=== PATIENT | male | born 1950 | race Caucasian/White ===

== ENCOUNTER → 2016-11-16 | Day surgery (SDC) | payer MEDICARE ==
[~2016-11-16] MED LIST: ATROPINE SULFATE 1% OPHT SOLN 2 ML BTL ONE; DEXAMETHASONE SOD PHOS 4 MG/ML VIAL ONE; EPINEPHrine HCL (1:1000) 1 MG/ML VIAL ONE; FLURBIPROFEN 0.03% OPHT SOLN 2.5 ML BTL ONE; HYALURONIDASE/LIDOCAINE/BUPIVACAINE 11 ML SYR TL ONE; LACTATED RINGER'S 1000 ML INJ 1,000 ML ONE; NEOMYCIN/POLYMYXIN/DEXAMETHASONE OPTH OINT 3.5 GM TUBE ONE; PHENYLEPHRINE HCL 2.5 % OPTH SOLN 15 ML BTL ONE; PROPOFOL 200 MG/20 ML AMP IV ONE; SODIUM CHLORIDE 0.9% INJ 10 ML ONE; TETRACAINE 0.5% OPTH SOLN 15 ML BTL ONE; TRIAMCINOLONE ACETONIDE 40 MG/ML VIAL ONE; TROPICAMIDE 1% OPHT SOLN 15 ML BTL ONE; ceFAZolin INJ 1,000 MG VIAL ONE
--- NOTE | 2016-11-29 19:46 | MP ---
cc: CHRIS CRAIN MD DATE OF SURGERY: 11/16/2016. PREOPERATIVE DIAGNOSIS: Epiretinal membrane, left eye. POSTOPERATIVE DIAGNOSIS: Epiretinal membrane, left eye. OPERATION: Pars plana vitrectomy left eye and membrane peeling left eye. SURGEON: Chris Crain MD ANESTHESIA: MAC. COMPLICATIONS: None. DESCRIPTION OF THE PROCEDURE IN DETAIL: After informed consent was obtained, the patient was brought to the operating room, placed under brief anesthesia with Propofol. 10 cc of 50/50 mixture of 0.75% Marcaine 2% Lidocaine was placed in a modified Van Lint lid block as well as peribulbar injection. The patient was then prepared and draped in usual sterile fashion. A wide lid speculum was placed in the patient's left eye. A 23-gauge vitrectomy cannulas were then placed in the lower temporal, superotemporal and superonasal quadrants 3 mm posterior to the cornea scleral limbus. Infusion cannula was placed lower temporally. A core vitrectomy was then performed. The vitrectomy is carried out as far as possible to vitreous space. Attention was then turned to the posterior pole where there was an epiretinal membrane covering the surface of the macula. It was carefully peeled off the macula with intraocular forceps. The same was then done for the internal limiting membrane. Careful indirect ophthalmoscopy with scleral depression was then performed and no peripheral retinal breaks were noted. The three vitrectomy cannulas were then removed. Subconjunctival injections of dexamethasone and Ancef were placed. An Atropine drop, Maxitrol ointment and a patch shield were then applied. The patient tolerated the procedure well. There were no complications. He will follow up tomorrow in our [facility] office. Chris Crain MD TAB/JCC /11:22 AM /7:44 PM
== END | disposition home or self-care (01) ==
LOC: ESDC 10:48
PROVIDERS: ATTEND Ophthalmology Retina Specialist
DX: H35.372 Puckering of macula, left eye (principal)
CPT/HCPCS: 00145; 67041; J0171; J0690; J1100; J7120; J3301